=== PATIENT | female | born 1960 | race Caucasian/White ===

== ENCOUNTER 2022-08-10 17:48 | Emergency (ER) | payer SELFPAY ==
[~2022-08-10] VITALS: Ht 167.6 cm; Wt 81.6 kg
[2022-08-10] MEDS ORDERED: diphenhydrAMINE HCL 50 MG CAPSULE PO ONE (19:00)
[2022-08-10] MEDS ORDERED: predniSONE 10 MG TABLET PO ONE (19:00)
[2022-08-10] MEDS ORDERED: FAMOTIDINE (20 MG) 20 MG TABLET PO ONE (19:00)
[2022-08-10] MEDS ORDERED: predniSONE 20 MG TABLET ONE (19:03)
[2022-08-10] MEDS ORDERED: diphenhydrAMINE HCL 50 MG CAPSULE ONE (19:04)
[2022-08-10] MEDS ORDERED: FAMOTIDINE (20 MG) 20 MG TABLET ONE (19:04)
--- NOTE | 2022-08-10 19:32 | NUR ---
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
[2022-08-10 19:54] LABS: CALCIUM, SERUM 9.5 mg/dL (8.5-10.1); POTASSIUM 3.8 mmol/L (3.5-5.1)
[2022-08-10 20:57] LABS: EOSINOPHILS % (AUTO) 19.2 % (0.0-6.0); HEMATOCRIT 41 % (33-45); HEMOGLOBIN 13.7 g/dL (11.5-14.8); LYMPHOCYTES # (AUTO) 2.8 K/uL (0.8-4.8); LYMPHOCYTES % (AUTO) 29.8 % (20.0-44.0); MEAN CORPUSCULAR HGB CONC 33 g/dl (31.0-36.0); MEAN CORPUSCULAR VOLUME 90 fL (82-100); MONOCYTES # (AUTO) 0.3 K/uL (0.1-1.30); MONOCYTES % (AUTO) 2.7 % (2.0-12.0); NEUTROPHILS # (AUTO) 4.6 K/uL (1.8-8.9); NEUTROPHILS % (AUTO) 48.3 % (43.0-81.0); PLATELET COUNT (AUTO) 250 K/uL (150-450); RED BLOOD CELL COUNT(AUTO) 4.58 MIL/uL (4.0-5.2); WHITE BLOOD COUNT (AUTO) 9.4 K/uL (4.3-11.0)
[2022-08-10] MEDS ORDERED: PRED50TA PO ×2 (21:52→22:19)
[2022-08-10] MEDS ORDERED: DIPH25TA22 PO (21:52)
[2022-08-10] MEDS ORDERED: FAMO-131 PO ×2 (21:52→22:19)
[2022-08-10] MEDS ORDERED: HYDR30CR10 TP ×2 (21:53→22:19)
[2022-08-10] MEDS ORDERED: DIPH50CA4 PO (22:20)
--- NOTE | 2022-08-10 22:25 | NUR ---
Patient discharged to home in stable condition. Written and verbal after care instructions given. Patient verbalizes understanding of instruction.
[2022-08-10 22:27] VITALS: BP 134/78
== END 2022-08-10 22:27 | disposition home or self-care (01) ==
LOC: ER 17:59
DX: L25.8 Unspecified contact dermatitis due to other agents (principal); T78.1XXA Other adverse food reactions, not elsewhere classified, initial encounter; I10 Essential (primary) hypertension; E11.9 Type 2 diabetes mellitus without complications; Z91.013 Allergy to seafood; Z88.8 Allergy status to other drugs, medicaments and biological substances; Z79.899 Other long term (current) drug therapy; X58.XXXA Exposure to other specified factors, initial encounter
CPT/HCPCS: 99284; 85025; 80048; 36415; Q0163; J7512